=== PATIENT | female | born 2000 | race Caucasian/White ===

== ENCOUNTER 2023-03-28 08:53 | Outpatient (AMB) | payer OTHER, SELFPAY ==
--- NOTE | 2023-03-28 08:58 | A.OFFVIS_ITS ---
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 Patient reports while she was skiing she landed with her leg twisting in different directions and heard a loud pop. She was unable to bear weight and presented to [facility] where xrays were performed. Currently she has ongoing pain and is unable to bear full weight. Limited ROM. Finds little to no relief with ibuprofen and Tylenol. She has been out of work since injury. 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 today for evaluation of right knee injury s/p skiing when she landed with her leg twisting in different directions and heard a loud ?pop?, 03/13/23. She reports she was unable to bear weight on her leg and was seen at [facility] where x-rays were performed. She currently states she has ongoing pain and limited ROM in her knee and is unable to bear full weight on her leg. She also c/o knee giving out with ambulation and cannot fully bend her knee. She finds minimal relief with ibuprofen and Tylenol. She has been using a brace with benefits. 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 Review of Systems Const All systems reviewed & are unremarkable except as noted in HPI and below Physical Exam Vital Signs: BMI result Body Mass Index 37.1 Const General: cooperative, healthy appearing, comfortable, no acute distress, well developed and alert Orientation/consciousness: patient oriented x3 HEENT Head: Yes normal to inspection, Yes normocephalic and Yes atraumatic Eyes General: appearance normal, both eyes and all related structures Resp Effort & Inspection: normal respiratory effort and able to speak in complete sentences Cardio Rate: regular rate Peripheral pulses: Peripheral pulses 2+ throughout GI Palpation (GI): Soft to palpation Skin Lesions: no lesions Rashes: no rashes Neuro General: patient oriented x3 Extrem Other: Right knee: Skin intact, no erythema . Trace effusion. Tenderness along the medial joint line. ROM is limited -5-80deg. Negative Cara?s. Significant guarding with ligamentous laxity. NVI. Results Reviewed Results Reviewed: Xrays were obtained in the office today and personally reviewed by me of the right knee negative for acute fracture or dislocations. Assessment & Plan Assessment & Plan (1) Internal derangement of right knee: Code(s): M23.91 - Unspecified internal derangement of right knee Plan Given her limitation in ROM and nature of her injury, an MRI of the right knee has been ordered to further evaluate the ligamentous structures. She was fit for a knee brace in the office today to use for stability. She will see us back once the scan is complete and remain out of work till her follow-up appointment pending MRI. Orders: Orders XR knee standing BI Today M25.561 - Pain in right knee, M25.562 - Pain in left knee XR knee RT 2V Today M25.569 - Pain in unspecified knee MR knee RT wo con Today M23.91 - Unspecified internal derangement of right knee Patient Instructions: Scribed for Jenny Jones PA-C, by Fredi Reaves medical editor, on 03/28/2023 at 9:00 AM EST. I, Jenny Jones PA-C, have personally reviewed and agree with the information entered by the scribe. Coding Level of Care Code New Pt Level 3 (26139) Diagnoses Internal derangement of right knee M23.91
[2023-03-28 09:06] VITALS: BMI 37.1
== END 2023-03-28 09:45 | disposition home or self-care (01) ==
PROVIDERS: PCP Pediatrics; Visit Provider Physician Assistant
DX: M23.91 Unspecified internal derangement of right knee (principal)
CPT/HCPCS: 99203

== ENCOUNTER 2023-03-28 16:05 | Outpatient (REF) | payer OTHER, SELFPAY ==
--- NOTE | ~2023-03-28 | XR_ITS ---
EXAMINATION: XR KNEE, RIGHT XR KNEE STANDING AP, BILATERAL CLINICAL INFORMATION: Pain in right knee, pain in unspecified knee. COMPARISON: None available. TECHNIQUE: AP standing view of bilateral knees. Lateral and sunrise views of the right knee. FINDINGS: AP STANDING VIEW LEFT KNEE: Minimal medial joint space narrowing with minimal medial marginal tibial hypertrophic change. RIGHT KNEE: Minimal medial joint space narrowing with minimal medial marginal tibial hypertrophic change. 7 mm sclerotic lesion overlying the proximal lateral tibia may represent a bone island. No significant joint effusion. XR/XR knee standing BI IMPRESSION: Minimal degenerative changes in the bilateral knees.
--- NOTE | ~2023-03-28 | XR_ITS ---
EXAMINATION: XR KNEE, RIGHT XR KNEE STANDING AP, BILATERAL CLINICAL INFORMATION: Pain in right knee, pain in unspecified knee. COMPARISON: None available. TECHNIQUE: AP standing view of bilateral knees. Lateral and sunrise views of the right knee. FINDINGS: AP STANDING VIEW LEFT KNEE: Minimal medial joint space narrowing with minimal medial marginal tibial hypertrophic change. RIGHT KNEE: Minimal medial joint space narrowing with minimal medial marginal tibial hypertrophic change. 7 mm sclerotic lesion overlying the proximal lateral tibia may represent a bone island. No significant joint effusion. XR/XR knee RT 2V IMPRESSION: Minimal degenerative changes in the bilateral knees.
== END 2023-03-28 16:06 | disposition home or self-care (01) ==
LOC: HO.HOSX 16:05
PROVIDERS: Visit Provider Physician Assistant
DX: M23.91 Unspecified internal derangement of right knee (principal); M25.561 Pain in right knee; M25.562 Pain in left knee
CPT/HCPCS: 73560; 73565; 99202

== ENCOUNTER 2023-04-24 20:14 | Outpatient (REF) | payer OTHER, SELFPAY ==
--- NOTE | ~2023-04-24 | MR_ITS ---
EXAMINATION: MR KNEE WITHOUT CONTRAST, RIGHT CLINICAL INFORMATION: Unspecified internal derangement of the right knee. Injury skiing 03/14/2023. Medial pain. Decreased range of motion. COMPARISON: Radiograph dated 03/28/2023. TECHNIQUE: MRI of the knee without contrast was performed using routine sequences on a high-field scanner. FINDINGS: MENISCI: Medial Meniscus: Intact. Lateral Meniscus: Intact. LIGAMENTS: Cruciate: There is a near-complete tear of the ACL at the mid substance with laxity of a thin band of residual intact fibers. Surrounding soft tissues are edematous. PCL is normal. Collateral: Intact EXTENSOR MECHANISM: Intact ARTICULAR CARTILAGE/BONE: Patellofemoral Compartment: Minimal chondral surface irregularity at the central trochlea. Patellar cartilage is normal. Medial Compartment: There is an osseous contusion at the posterior margin of the medial tibial plateau. A more mild contusion is present at the medial margin of the medial femoral condyle. Lateral Compartment: Osseous contusions are present at the posterior and lateral margins of the lateral tibial plateau. Articular cartilage appears normal. No fracture or malalignment. JOINT FLUID AND BURSAE: Small joint effusion. No Rios's cyst. MR/MR knee RT wo con IMPRESSION: 1. Near-complete ACL tear. 2. Osseous contusions at the medial and lateral tibial plateau and medial femoral condyle. 3. Small joint effusion. 4. Intact menisci.
== END 2023-04-24 20:15 | disposition home or self-care (01) ==
LOC: HO.MRI 20:14
PROVIDERS: Visit Provider Physician Assistant
DX: M23.91 Unspecified internal derangement of right knee (principal)
CPT/HCPCS: 73721

== ENCOUNTER 2023-05-08 14:39 | Outpatient (AMB) | payer OTHER, SELFPAY ==
--- NOTE | 2023-05-08 14:43 | A.OFFVIS_ITS ---
Intake Vital Signs 05/08/23 14:44 Height 5 ft 6 in Weight 230 lb BMI 37.1 Intake Visit Reasons: OV- RT Knee MRI review Intake Note: Dafne a 22 year old female presents today for an MRI review of the right knee. DOI 03/13/23. Patient reports while she was skiing she landed with her leg twisting in different directions and heard a loud pop. Patient reports that the knee is feeling the same since her injury. Accompanied by: Mother Allergies metformin Allergy (Verified 05/08/23 14:45) Rash Sulfacet-R Allergy (Unknown, Uncoded 05/08/23 14:45) Rash HPI OV- RT Knee MRI review HPI Details Dafne a 22 year old female presents today for an MRI review of the right knee. DOI 03/13/23. Patient reports while she was skiing she landed with her leg twisting in different directions and heard a loud pop. 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 She is active and healthy. She has been wearing a knee brace and has lateral sided knee pain. 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 Resp Other: No audible wheezing Effort & Inspection: normal respiratory effort Back/Spine/Pelvis Cervical Spine: normal cervical lordosis Skin General skin exam: no rashes or lesions noted Neuro General: no focal motor deficits Extrem Other: lateral compartment ttp mild effusion 5-130 deg motion 1+valgus instability with minimal ttp 1+ don Psych Appearance: grossly normal and well kempt Mental Status: mental status grossly normal Speech and movement: Normal speech and movement present Affect: normal affect Attitude: cooperative Results Reviewed Results Reviewed: I personally reviewed the MR images. 1. Near-complete ACL tear. 2. Osseous contusions at the medial and lateral tibial plateau and medial femoral condyle. 3. Small joint effusion. 4. Intact menisci. Assessment & Plan Assessment & Plan (1) ACL (anterior cruciate ligament) rupture: Code(s): S83.519A - Sprain of anterior cruciate ligament of unspecified knee, initial encounter Plan: This is a 22 yo F with right ACL rupture. I recommend right ACL reconstruction. I discussed the risks benefits and alternatives including but not limited to the risk of pain, infection, stiffness, need for further surgery as well as potential medical complications. We discussed allograft vs autgraft and I recommend quad tendon autograft. I discussed this with her and she agreeS. I also recommend PT prior to surgery to obtain full motion and engage the quadriceps. Orders: Orders PT Evaluation and Treatment Today S83.519A - Sprain of anterior cruciate ligament of unspecified knee, initial encounter Coding Level of Care Code Est Pt Level 4 (03055) Diagnoses ACL (anterior cruciate ligament) rupture S83.519A
[2023-05-08 14:44] VITALS: BMI 37.1
== END 2023-05-08 15:40 | disposition home or self-care (01) ==
PROVIDERS: Visit Provider Orthopaedic Surgery
DX: S83.519A Sprain of anterior cruciate ligament of unspecified knee, initial encounter (principal)
CPT/HCPCS: 99214

== ENCOUNTER → 2023-05-08 14:39 | Outpatient (BNVA) | payer OTHER, SELFPAY | PROVIDERS: Visit Provider Orthopaedic Surgery | DX: S83.511A Sprain of anterior cruciate ligament of right knee, initial encounter (principal) | CPT/HCPCS: 99212 ==

== ENCOUNTER 2023-05-30 14:00 | Outpatient (RCR) | payer OTHER, SELFPAY ==
--- NOTE | 2023-05-16 17:30 | MHC.PT.EP ---
[facility] [place] Office [place] Office [place] Office [address] Carrie Becerra [address] [phone] F: [phone] F: [phone] F: [phone] F: [phone] Physical Therapy Plan of Care Date of Evaluation: 05/16/23 Date of Surgery: 06/03/23 Diagnosis: R ACL TEAR Assessment: Pt IS 22 YO F S/P SKIING INJURY ON 03/13/23 WITH RESULTANT ACL TEAR R KNEE. HAS SEEN ORTHO AND REFERRED FOR PRE-OP PT TO WORK ON ROM AND QUAD STRENGTHENING. SCHEDULED FOR REPAIR ON 04/04/23 REPORTS HAS NOT BEEN HAVING MUCH SWELLING. HAS KNEE BRACE (VELCRO) AND HAS BEEN FITTED FOR PO BRACE (WITH DIALS) PRESENTS WITH DECREASED R LE STRENGTH AND LIMITED R KNEE ROM WITH PAIN. SHOULD BENEFIT FROM PT FOR PRE-OP TRNG 1X/WK X 2 WKS Frequency and Duration: The patient will be seen 1X/WK X 2 WKS Short Term Goals: 1. INCREASED AWARENESS R ACL RECONSTRUCTION SURGERY POST OP PT CARE 2. I HEP FOR PRE-OP ACL EXERCISES 3. INCREASED UNDERSTANDING TRANSF TRNG AND STAIR NEGOTIATION 4. Pt ABLE TO ABNER/DOFF POST OP BRACE INDEPENDENTLY 5. Pt ABLE TO TRANSFER AND AMBULATE AND NEGOTIATE 4 STAIRS WITH RAIL/CRUTCH Team Leader Goals: Treatment Plan: Modalities to reduce pain, spasms and effusion. Manual therapy to restore motion and function. Therapeutic exercise to improve strength and flexibility. Neuromuscular re-education for posture and balance. Therapeutic activities to return to functional activities of daily living. Electronically signed by: CLAUDIO ESPANA PT Please sign and return to therapist. Thank you for your referral.
--- NOTE | 2023-06-02 08:10 | MHC.PT.DC ---
[facility] [place] Office [place] Office [place] Office [address] Carrie Becerra [address] [phone] F: [phone] F: [phone] F: [phone] F: [phone] Physical Therapy Discharge Report Diagnosis: R ACL TEAR Date of Surgery: 06/03/23 Date of Evaluation: 05/16/23 Date of Discharge: 06/02/23 Treatments to Date: 3 Cancellations to Date: No Shows to Date: Discharge Status: Achieved Goals Independent with HEP Discharge Summary: PER ASSESSMENT AT LAST SESSION Brace fitted for Dafne today and able to amb w/comfort around gym. Pt given added ex's for pre rehab w/o any issues and scheduled for surgery next week. ROM R KNEE ~0-125 Electronically signed by: CLAUDIO ESPANA PT Please sign and return to therapist. Thank you for your referral.
== END 2023-06-02 08:11 | disposition home or self-care (01) ==
LOC: HO.PT 14:00
PROVIDERS: PCP Pediatrics; Visit Provider Orthopaedic Surgery
DX: S83.511A Sprain of anterior cruciate ligament of right knee, initial encounter (principal)
CPT/HCPCS: 97110; 97116; 97161; 97535

== ENCOUNTER 2023-06-03 05:59 | Day surgery (SDC) | payer OTHER, SELFPAY ==
[2023-05-30 08:56] VITALS: BMI 37.1
[2023-05-30 09:11] VITALS: BMI 37.1
--- NOTE | 2023-06-02 11:42 | HO.ANESPROP2 ---
Documented by User: Savita Osuna NP 06/02/23 11:42 HPI - Anesthesia Eval Consult details Narrative: 22yo F for Right ACL Autograft quad vs BTB Allograft PMFSH Active Problems Active Problems: All Active Problems ACL (anterior cruciate ligament) rupture (Acute) Internal derangement of right knee (Acute) Past Medical History Medical History PCOS (polycystic ovarian syndrome) Surgical History Surgical History History of surgery on lower extremity Hx of wisdom tooth extraction Social History Social History Are you a primary special needs caregiver to a significant other at home: No Do you presently have visiting nurse or other home services: No Comment: knee right Patient Tobacco Use Status: Never used Tobacco Current occupational status: employed 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 Allergy/AdvReac Type Severity Reaction Status Date / Time metformin Allergy Intermediate Rash Verified 06/03/23 06:09 sulfacetamide Allergy Intermediate Rash Verified 06/03/23 06:09 [From Sulfacet-R] sulfur [From Sulfacet-R] Allergy Intermediate Rash Verified 06/03/23 06:09 Exam Height,Weight and Vital Signs: Height 5 ft 6 in Weight 104.326 kg Assessment and Plan Assessment Anesthesia Assessment: Chart Reviewed Documented by User: Zander Rosas MD 06/03/23 14:38 PMFSH Past Medical History Medical History PCOS (polycystic ovarian syndrome) Family History Family history of problems with anesthesia: No Surgical History Surgical History History of surgery on lower extremity Hx of wisdom tooth extraction History of Problems with Anesthesia: No Social History Social History Are you a primary special needs caregiver to a significant other at home: No Do you presently have visiting nurse or other home services: No Comment: knee right Patient Tobacco Use Status: Never used Tobacco Current occupational status: employed 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 Allergy/AdvReac Type Severity Reaction Status Date / Time metformin Allergy Intermediate Rash Verified 06/03/23 06:09 sulfacetamide Allergy Intermediate Rash Verified 06/03/23 06:09 [From Sulfacet-R] sulfur [From Sulfacet-R] Allergy Intermediate Rash Verified 06/03/23 06:09 Exam Airway Mallampati Class: II TM Dist: >3cm Neck ROM: Full Loose/Missing/Broken Teeth: No Assessment and Plan Assessment Anesthesia Assessment: Anesthesia Plan Discussed Final Anesthetic Review Family History of Problems with Anesthesia: No History of Problems with Anesthesia: No NPO: Yes ASA Class: II Final Preanesthetic Review: No Changes in Pt Med Stat, Meds/Allgs Chart Reviewed, Consent Obtained/Reviewed and Anes Risks/Benef Reviewed Patient Risk: Intermediate Procedure Risk: Low Anesthetic Plan Anesthetic Plan: GA and Regional Block Disposition: Standard PACU
[2023-06-03] VITALS (17 sets, daily range): BP systolic 125–151; BP diastolic 73–92; PULSE 63–108; RESP 14–20; TEMP 36.4–37.2; O2SAT 93–100; BMI 43.6
[2023-06-03 06:20] LABS: UPreg QC Valid YES; Urine Pregnancy NEGATIVE (NEGATIVE)
[2023-06-03] MEDS: Lactated Ringers 1,000 ML 100 ML IVCONT (06:49)
--- NOTE | 2023-06-03 07:27 | MHC.SHP ---
Pre-Procedural Eval Section A - 24 Hr Update-Section A only Date of Service: 06/03/23 The patient is an INPATIENT: No Changes since office visit: No Cold of Flu in the past 2 weeks, No New Medical Problems, No Changes in Medication and No Patient answered all questions The patient has been examined within 24 hours of the surgical procedure. The History & Physical has been completed within 30 days and I have reviewed it.: Yes Section B - Complete if H&P > 30 days Chief Complaint: Sprain of anterior cruciate ligament of right knee Allergies: Allergies Allergy/AdvReac Type Severity Reaction Status Date / Time metformin Allergy Intermediate Rash Verified 06/03/23 06:09 sulfacetamide Allergy Intermediate Rash Verified 06/03/23 06:09 [From Sulfacet-R] sulfur [From Sulfacet-R] Allergy Intermediate Rash Verified 06/03/23 06:09 Plan I have reviewed the history and physical and performed a pertinent physical examination on my patient. No changes have occurred unless specified. Time Spent With Patient Time: Total time managing care of this patient today ____ minutes.
--- NOTE | 2023-06-03 10:21 | PM.OP ---
Brief Operative Note Date of Service: 06/03/23 Pre-op diagnosis: Right ACL tear Post-op diagnosis: same Procedure: Right ACL recon with BTB sutograft Implants: Mata and nephew suture button, foot print and 10x25 tibial interference screw Surgeon: Artur De Leon MD Anesthesia: GETA and regional Was an Well Logging Captain Mud Analysis used for this Procedure?: Yes Well Logging Captain Mud Analysis: Althea Ji Estimated blood loss (mL): 20 Tourniquet time (min): 120 IV fluids (mL): 1,200 Pathology: none sent Condition: stable Disposition: PACU
[2023-06-03] MEDS: Ketorolac Tromethamine 30 MG/ML VIAL IVPUSH (11:03)
[2023-06-03] MEDS: HYDROmorphone HCl 0.5 MG/0.5 ML SYRINGE 0.25 MG IVPUSH ×3 (11:06→11:19)
[2023-06-03] MEDS: LORazepam 2 MG/ML VIAL 1 MG IVPUSH (11:43)
[2023-06-03] MEDS: oxyCODONE HCl Immed Release 5 MG TABLET PO (12:18)
--- NOTE | 2023-06-09 08:24 | P.OP_ITS ---
Operative Note Operative Note Date of Service: 06/03/23 Narrative: Date of Service: 06/03/23 Pre-op diagnosis: Right ACL tear Post-op diagnosis: same Procedure: Right ACL recon with BTB autograft Implants: Mata and nephew suture button, foot print and 10x25 tibial interference screw Surgeon: Artur De Leon MD Anesthesia: GETA and regional Was an Tube Mill Operator used for this Procedure?: Yes Tube Mill Operator: Althea Ji Estimated blood loss (mL): 20 Tourniquet time (min): 120 IV fluids (mL): 1,200 Pathology: none sent Condition: stable Disposition: PACU Procedure in detail: Patient was brought to the operating room placed supine on the arthroscopic table and prepped and draped in standard sterile fashion. A time-out was called to identify proper site proper procedure proper surgeon and IV antibiotics per weight were administered. Under anesthesia she had a + pivot shift. I begna by making an incision from the middle of the patella distally to the beginning of the tibial tubercle. Dissection down to the paratenon was taken and an 11 mm tendon was outline with cautery taken from the middle third of the patellar tenon. After the paratenone was incised, protected and retracted an 11 blade was used to make full thickness incision of the tendon. The patellar bone bludg was then outline with cautery and measured 11 x 20. A small oscillating saw was used to make triangular cuts and a small osteotome was usd to complete the cut. The proximal bone plug was tne dessected off the underlying fat pad and the proximal portion of the allograft was protects. I then turned to the tibial tubercle where I also made an 11x 20 triangular cut initially with an oscillating saw and then with an ostetome. The fragment was dissected off the fat pad and the graft was prepared on the back table to fit through a 10mm graft sizer. The allograft incision was then closed with 0 vicryl for the paratenon and patellar tendon , then 2.0 sub Q and yung on the skin. I then turned to the arthroscopic portion. I began by exsanguinating the limb and insufflating tourniquet to 300 mm Hg. Then made a standard anterolateral stab incision. The knee was insufflated with water and 30 degree arthroscope was placed. There was grade 1 fibrillations of the patella but overall suprapatellar pouch and the gutters were clean. I descended into the medial compartment where I made my far medial portal under direct visualization. There was an intacdt medial and lateral meniscus. The roots were intact. I then examined the notch where there was a + empty wall sign and an intact PCL. I debrided the stump and acl footprint and performed a limited notchplasty. I then, through a far AM portal and a 7mm behind the back guide, drilled a k-wire through the LFC with the knee in hyper-flexion. I measured the tunnel as a 33 and then after sizing the allograft on the back table drilled a 25 mm tunnel with an 10 mm reamer. The final 8 mm was drilled with a 4.5 reamer. I then pulled a suture through the femoral tunnel and turned my attention to the tibia. I did examine the femoral tunnel and was satisfied with the posterior wall and its location low and medial at the anatomic footprint. I placed my tibial drill guide in 55 deg and, through a anteromedial inc just lateral to the tibial tubercle placed a k-wire into the notch exiting just medial to the anterior horn insertion of the lateral meniscus. I then over-reamed with an 10 reamer. I cleaned the tunnels up with a shaver. I then passed the autograft through the tibial tunnel and femoral tunnel and flipped the button. The graft was examined and I was satisfied with the poiosition. I placed a tibial interference screw with the knee in hyper-extension while holding the graft taught. Once I was satisfied that the interference screw was buried I examined the ACL. The ACL was not impinging and there was a negative pivot shift. I then removed all instrumentation and closed the incisions with nylon. Patient was then placed in sterile dressings and a hinged knee brace. She was then extubated brought recovery room stable condition. There were no known complications.
== END 2023-06-03 13:42 | disposition home or self-care (01) ==
PROVIDERS: Nurse Practitioner; PCP Pediatrics; Visit Provider Orthopaedic Surgery
PROC: (CPT 27428; principal; 2023-06-03 07:30)
DX: S83.511A Sprain of anterior cruciate ligament of right knee, initial encounter (principal); X50.1XXA Overexertion from prolonged static or awkward postures, initial encounter; Y93.23 Activity, snow (alpine) (downhill) skiing, snowboarding, sledding, tobogganing and snow tubing; Y92.9 Unspecified place or not applicable; Y99.8 Other external cause status; Z88.8 Allergy status to other drugs, medicaments and biological substances; Z88.2 Allergy status to sulfonamides
CPT/HCPCS: 29888; 81025; C1713; J0131; J0171; J0665; J0690; J1100; J1170; J1885; J2060; J2250; J2405; J2704

== ENCOUNTER → 2023-06-03 05:59 | Outpatient (BNV) | payer OTHER, SELFPAY | PROVIDERS: PCP Pediatrics; Visit Provider Orthopaedic Surgery | DX: S83.511A Sprain of anterior cruciate ligament of right knee, initial encounter (principal) | CPT/HCPCS: 29888 ==

== ENCOUNTER 2023-06-12 09:49 | Outpatient (REF) | payer OTHER, SELFPAY ==
--- NOTE | ~2023-06-12 | XR_ITS ---
EXAMINATION: XR KNEE, RIGHT CLINICAL INFORMATION: Pain and specifically. COMPARISON: MR right knee 04/24/2023. X-ray right knee 03/28/2023. TECHNIQUE: Single AP view of the right knee. FINDINGS: Single AP view demonstrates metallic button along the distal lateral femur with appearance of tunneling characteristic of ACL repair in patient with recent MRI diagnostic of near-complete ACL tear. Diffuse soft tissue swelling with small scattered lucencies in the subcutaneous tissue likely representing postoperative air. Minimal medial joint compartment narrowing again seen. Stable 7 mm sclerotic lesion overlying the proximal lateral tibia may represent a bone island. XR/XR knee RT 1V IMPRESSION: Status post ACL repair. Diffuse soft tissue swelling with small scattered lucencies in the subcutaneous tissue likely representing postoperative air. Correlation with clinical exam recommended for confirmation.
== END 2023-06-12 09:50 | disposition home or self-care (01) ==
LOC: HO.HOSX 09:49
PROVIDERS: Visit Provider Physician Assistant
DX: M25.561 Pain in right knee (principal); Z98.890 Other specified postprocedural states
CPT/HCPCS: 73560; 99212

== ENCOUNTER 2023-06-12 14:05 | Outpatient (AMB) | payer OTHER, SELFPAY ==
--- NOTE | 2023-06-12 14:13 | MHC.OFFVIS ---
Intake Visit Reasons: PO RT ACL 06/03/23 NE Intake Note: Dafne is a 22 year old female who presents today for a post op appointment s/p right ACL 06/03/23 NE. Patient reports that she is doing well. Her pain is at a 2/10 on the pain scale. Allergies metformin Allergy (Intermediate, Verified 06/12/23 14:16) Rash sulfacetamide [From Sulfacet-R] Allergy (Intermediate, Verified 06/12/23 14:16) Rash sulfur [From Sulfacet-R] Allergy (Intermediate, Verified 06/12/23 14:16) Rash HPI HPI PO RT ACL 06/03/23 NE: Details: 22-year-old female who presents in the office today 9 days status post right ACL reconstruction with BTB autograft, which was performed on 06/03/[address] De Leon. While in the office today the patient reports she is doing well and rates her pain as a 2/10. 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 Sutures intact. No surrounding erythema or drainage. No signs of infection. NVI. Assessment & Plan Assessment & Plan (1) History of repair of anterior cruciate ligament of right knee: Onset Date: ~06/03/23 Comment: ACL reconstruction with BTB autograft Dr. Artur De Leon Code(s): Z98.890 - Other specified postprocedural states Category: Surgical Plan Ms. Thornton is a 22-year-old female who presents in the office today 9 days status post right ACL reconstruction with BTB autograft, which was performed on 06/03/[address] De Leon. While in the office today the patient reports she is doing well and rates her pain as a 2/10. Sutures were removed and steri-stripes were applied. She will continue to work with physical therapy. Follow up will be in 4 weeks, or sooner if needed. X-rays of the right knee which were obtained while in the office today and were reviewed by me, Althea Ji PA-C, revealed intact endo-button in proper position. Orders: Orders XR knee RT 1V Today M25.569 - Pain in unspecified knee Patient Instructions: Scribed by Sonam Almaguer ophthalmic medical assistant, for Althea Ji PA-C on 06/12/2023 at 2:09 pm, EST. Coding Level of Care Code Global (45361) Diagnoses History of repair of anterior cruciate ligament of right knee Z98.890
== END 2023-06-12 14:52 | disposition home or self-care (01) ==
PROVIDERS: Visit Provider Physician Assistant
DX: Z98.890 Other specified postprocedural states (principal)
CPT/HCPCS: 99024

== ENCOUNTER 2023-07-04 14:58 | Outpatient (AMB) | payer OTHER, SELFPAY ==
--- NOTE | 2023-07-07 20:17 | A.OFFVIS_ITS ---
Intake Visit Reasons: PO RT ACL 06/03/23 NE-sutures check Allergies metformin Allergy (Intermediate, Verified 06/12/23 14:16) Rash sulfacetamide [From Sulfacet-R] Allergy (Intermediate, Verified 06/12/23 14:16) Rash sulfur [From Sulfacet-R] Allergy (Intermediate, Verified 06/12/23 14:16) Rash HPI HPI PO RT ACL 06/03/23 NE-sutures check: Details: 22 yo female presents to the office today s/p rt knee acl recon 06/03/23 with retained sutures. Denies fever, chills or drainage. 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 Assessment & Plan Assessment & Plan (1) History of repair of anterior cruciate ligament of right knee: Onset Date: ~06/03/23 Comment: ACL reconstruction with BTB autograft Dr. Artur De Leon Code(s): Z98.890 - Other specified postprocedural states Category: Surgical (2) Retained suture: Code(s): T81.89XA - Other complications of procedures, not elsewhere classified, initial encounter; Z18.9 - Retained foreign body fragments, unspecified material Category: Medical Plan Retained suture removed in office today without complications. Coding Level of Care Code Global (08833) Diagnoses History of repair of anterior cruciate ligament of right knee Z98.890 Retained suture T81.89XA; Z18.9
== END 2023-07-04 15:00 | disposition home or self-care (01) ==
PROVIDERS: PCP Pediatrics; Visit Provider Physician Assistant
DX: Z98.890 Other specified postprocedural states (principal); T81.89XA Other complications of procedures, not elsewhere classified, initial encounter; Z18.9 Retained foreign body fragments, unspecified material
CPT/HCPCS: 99024

== ENCOUNTER → 2023-07-04 14:58 | Outpatient (BNVA) | payer OTHER, SELFPAY | PROVIDERS: PCP Pediatrics; Visit Provider Physician Assistant | DX: T81.89XD Other complications of procedures, not elsewhere classified, subsequent encounter (principal); Z18.9 Retained foreign body fragments, unspecified material; Z98.890 Other specified postprocedural states | CPT/HCPCS: 99212 ==

== ENCOUNTER 2023-07-14 14:31 | Outpatient (AMB) | payer OTHER, SELFPAY ==
--- NOTE | 2023-07-14 14:31 | A.OFFVIS_ITS ---
Intake Visit Reasons: PO RT ACL 06/03/23 NE Intake Note: Dafne is a 22 year old female who presents today for a post op appointment s/p right ACL 06/03/23 NE. Patient reports that she is doing[ well she is having some painful clicking with extension and is questioning if there was any injury in the meniscus. She is working on full extension and flexion of the knee, she is fully weight bearing with the brace. Allergies metformin Allergy (Intermediate, Verified 06/12/23 14:16) Rash sulfacetamide [From Sulfacet-R] Allergy (Intermediate, Verified 06/12/23 14:16) Rash sulfur [From Sulfacet-R] Allergy (Intermediate, Verified 06/12/23 14:16) Rash HPI HPI PO RT ACL 06/03/23 NE: Details: 6 weeks post op Wearing brace when out of house no gait antalgia occasional anterior knee pain PFSH Medical History (Updated 07/07/23 @ 20:19 by Jenny Jones PA-C) PCOS (polycystic ovarian syndrome) Social History Are you a primary foster care social worker to a significant other at home: No Do you presently have visiting nurse or other home services: No Comment: knee right Patient Tobacco Use Status: Never used Tobacco 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 Artur De Leon Code(s): Z98.890 - Other specified postprocedural states Category: Surgical Plan: Continue PT Care with ambulation and brace when out of house f/u 6 weeks Coding Level of Care Code Global (33572) Diagnoses History of repair of anterior cruciate ligament of right knee Z98.890
== END 2023-07-14 14:51 | disposition home or self-care (01) ==
PROVIDERS: PCP Pediatrics; Visit Provider Orthopaedic Surgery
DX: Z98.890 Other specified postprocedural states (principal)
CPT/HCPCS: 99024

== ENCOUNTER → 2023-07-14 14:31 | Outpatient (BNVA) | payer OTHER, SELFPAY | PROVIDERS: PCP Pediatrics; Visit Provider Orthopaedic Surgery | DX: Z47.89 Encounter for other orthopedic aftercare (principal); Z98.890 Other specified postprocedural states | CPT/HCPCS: 99212 ==

== ENCOUNTER 2023-09-01 13:15 | Outpatient (AMB) | payer OTHER, SELFPAY ==
--- NOTE | 2023-09-01 13:19 | MHC.OFFVIS ---
Intake Visit Reasons: OV-RT ACL follow up 06/03/23 Intake Note: Dafne is a 22 year old female who presents today for a follow up of her right knee s/p ACL Repair 06/03/23. Patient reports that she is doing well with no concerns. She continues to work with PT Allergies metformin Allergy (Intermediate, Verified 09/01/23 13:22) Rash sulfacetamide [From Sulfacet-R] Allergy (Intermediate, Verified 09/01/23 13:22) Rash sulfur [From Sulfacet-R] Allergy (Intermediate, Verified 09/01/23 13:22) Rash HPI HPI OV-RT ACL follow up 06/03/23: Details: Dafne is a 22 year old female who presents today for a follow up of her right knee s/p ACL Repair 06/03/23. Patient reports that she is doing well with no concerns. She continues to work with PT. 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 Artur De Leon Code(s): Z98.890 - Other specified postprocedural states Category: Surgical Plan: Doing well. HEP. No work. F/u 3 mo. Coding Level of Care Code Global (57090) Diagnoses History of repair of anterior cruciate ligament of right knee Z98.890
== END 2023-09-01 13:41 | disposition home or self-care (01) ==
PROVIDERS: PCP Pediatrics; Visit Provider Orthopaedic Surgery
DX: Z98.890 Other specified postprocedural states (principal)
CPT/HCPCS: 99024

== ENCOUNTER → 2023-09-01 13:15 | Outpatient (BNVA) | payer OTHER, SELFPAY | PROVIDERS: PCP Pediatrics; Visit Provider Orthopaedic Surgery | DX: Z47.89 Encounter for other orthopedic aftercare (principal); Z98.890 Other specified postprocedural states | CPT/HCPCS: 99212 ==

== ENCOUNTER 2023-10-07 14:00 | Outpatient (RCR) | payer OTHER, SELFPAY ==
--- NOTE | 2023-06-11 08:19 | MHC.PT.EP ---
[facility] [place] Office [place] Office [place] Office [address] [phone] F: [phone] F: [phone] F: [phone] F: [phone] Physical Therapy Plan of Care Date of Evaluation: 06/10/23 Date of Surgery: 06/03/23 Diagnosis: POST OP ACL Assessment: Pt IS 22 YO F S/P R ACL RECONSTRUCTION WITH PATELLAR TENDON AUTOGRAFT. Pt CAME FOR PRE-OP PT. PRESENTS TODAY WITH LIMITED R KNEE ROM AND LIMITED R LE STRENGTH. 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 SHOULD BENEFIT FROM PT TO HELP IMPROVE OVERALL FUNCTIONAL MOBILITY Frequency and Duration: The patient will be seen 2X/WK X 8 WKS Short Term Goals: 1. INCREASED AWARENESS KNEE CARE 2. I HEP WITH DC EX PLAN 3. Pt ABLE TO PERF 10 SLR WITHOUT QUAD LAG 4. Pt TO REPORT NOTABLE DECREASE IN R KNEE SWELLING Route Contractor Goals: 1. R KNEE ROM 0-130 2. R LE STRENGTH 5/5 T/O 3. DECREASED R KNEE PAIN AT LEAST 50% WITH ADLS 4. GT WITH GOOD PATTERN WITHOUT AD Treatment Plan: Modalities to reduce pain, spasms and effusion. Manual therapy to restore motion and function. Therapeutic exercise to improve strength and flexibility. Neuromuscular re-education for posture and balance. Therapeutic activities to return to functional activities of daily living. Electronically signed by: CLAUDIO ESPANA PT Please sign and return to therapist. Thank you for your referral.
--- NOTE | 2023-11-25 12:05 | MHC.PT.DC ---
[facility] [place] Office [place] Office [place] Office [address] Carrie Becerra 140 [facility] [phone] F: [phone] F: [phone] F: [phone] F: [phone] Physical Therapy Discharge Report Diagnosis: POST OP ACL Date of Surgery: 06/03/23 Date of Evaluation: 06/10/23 Date of Discharge: 10/07/23 Treatments to Date: 19 Cancellations to Date: No Shows to Date: Discharge Status: Achieved Goals Improved Function Independent with HEP Discharge Summary: HAS MET MOST PT GOALS. TO RETURN AT 6-9 MONTH POINT (ORTHO FU AT 6 MONTHS) FOR HIGHER LEVEL/RTW ACTIVITIES Electronically signed by: CLAUDIO ESPANA PT Please sign and return to therapist. Thank you for your referral.
== END 2023-11-25 12:05 | disposition home or self-care (01) ==
LOC: HO.PT 14:00
PROVIDERS: PCP Pediatrics; Visit Provider Physician Assistant
DX: S83.511D Sprain of anterior cruciate ligament of right knee, subsequent encounter (principal)
CPT/HCPCS: 97110; 97112; 97116; 97140; 97161; 97530; 97535

== ENCOUNTER 2023-12-04 12:10 | Outpatient (AMB) | payer OTHER, SELFPAY ==
--- NOTE | 2023-12-04 12:12 | MHC.OFFVIS ---
Vital Signs 12/04/23 12:15 Height 5 ft 6 in Weight 260 lb BMI 42.0 Intake Visit Reasons: OV-RT ACL follow up 06/03/23 Intake Note: Dafne is a 22 year old female who presents today for a follow up of her right knee s/p ACL Repair 06/03/23. 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 She still struggles with full extension. She is no longer working with physical therapy. She does not take anything for her pain. Allergies metformin Allergy (Intermediate, Verified 09/01/23 13:22) Rash sulfacetamide [From Sulfacet-R] Allergy (Intermediate, Verified 09/01/23 13:22) Rash sulfur [From Sulfacet-R] Allergy (Intermediate, Verified 09/01/23 13:22) Rash HPI HPI OV-RT ACL follow up 06/03/23: Details: Dafne is a 22 year old female who presents today for a follow up of her right knee s/p ACL Repair 06/03/23. 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 She still struggles with full extension. She is no longer working with physical therapy. She does not take anything for her pain. 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 Artur De Leon Code(s): Z98.890 - Other specified postprocedural states Category: Surgical Plan: Bertram continues to improve with symptoms that include anterior knee pain and some inability to hyperextend knee compared to the left but otherwise improving. I recommend dynamic PT. follow up 3 months Coding Level of Care Code Est Pt Level 3 (63990) Diagnoses History of repair of anterior cruciate ligament of right knee Z98.890
[2023-12-04 12:15] VITALS: BMI 42.0
== END 2023-12-04 12:40 | disposition home or self-care (01) ==
PROVIDERS: PCP Pediatrics; Visit Provider Orthopaedic Surgery
DX: S83.511D Sprain of anterior cruciate ligament of right knee, subsequent encounter (principal)
CPT/HCPCS: 99213

== ENCOUNTER → 2023-12-04 12:10 | Outpatient (BNVA) | payer OTHER, SELFPAY | PROVIDERS: PCP Pediatrics; Visit Provider Orthopaedic Surgery | DX: M25.561 Pain in right knee (principal); Z98.890 Other specified postprocedural states | CPT/HCPCS: 99212 ==

== ENCOUNTER 2024-01-01 13:47 | Outpatient (RCR) | payer OTHER, SELFPAY ==
--- NOTE | 2024-01-01 15:57 | MHC.PT.EP ---
[facility] [place] Office [place] Office [place] Office [address] Carrie Becerra [address] [phone] F: [phone] F: [phone] F: [phone] F: [phone] Physical Therapy Plan of Care Date of Evaluation: 01/01/24 Date of Surgery: 05/2023 Diagnosis: s/p ACL 05/2023 (RL) dynamic program Assessment: pt is a 23 y/o female presenting to physical therapy w/ referring diagnosis of . Impairments include pain, decreased range of motion, decreased strength, impaired functional mobility, impaired postural awareness, and altered ambulation mechanics. pt is a good candidate for skilled PT due to age, potential remediation of impairments, typical disease/condition progression and prognosis, comorbidities, and motivation. pt would benefit from skilled PT intervention to provide a tailored strengthening and stretching exercise program, functional training, gait training, postural re-training, neuromuscular re-education, modalities as needed for pain, equipment safety demonstration. Frequency and Duration: The patient will be seen 2x/wk for 4 wks Short Term Goals: pt will be I w/ HEP to promote self-management of condition. pt will improve R quad strength to 5/5 to promote ease in squatting/bending to pickling operator objects from the ground. Blood Donor Unit Assistant Goals: pt will report a statistically significant improvement in self-reported outcome measure, LEFI, to promote return to PLOF. pt will perform B forward lunge w/ proper form/mechanics to promote return to work readiness. Treatment Plan: Modalities to reduce pain, spasms and effusion. Manual therapy to restore motion and function. Therapeutic exercise to improve strength and flexibility. Neuromuscular re-education for posture and balance. Therapeutic activities to return to functional activities of daily living. Electronically signed by: Melany Lou PT, DPT Please sign and return to therapist. Thank you for your referral.
--- NOTE | 2024-02-16 13:04 | MHC.PT.DC ---
[facility] [place] Office [place] Office [place] Office [address] Carrie Becerra 140 [facility] [phone] F: [phone] F: [phone] F: [phone] F: [phone] Physical Therapy Discharge Report Diagnosis: s/p ACL 05/2023 (RL) dynamic program Date of Surgery: 05/2023 Date of Evaluation: 01/01/24 Date of Discharge: 02/16/24 Treatments to Date: 1 Cancellations to Date: 0 No Shows to Date: 0 Discharge Status: Discharge Summary: The patient's insurance at time of evaluation was not going to authorize any treatments until a review of assessment was completed. The insurance company was going to authorize ~6 visits; however, the patient did not book anything. Electronically signed by: Melany Lou PT, DPT Please sign and return to therapist. Thank you for your referral.
== END 2024-02-16 13:04 | disposition home or self-care (01) ==
LOC: HO.PT 13:47
PROVIDERS: PCP Pediatrics; Visit Provider Orthopaedic Surgery
DX: Z98.890 Other specified postprocedural states (principal)
CPT/HCPCS: 97161

== ENCOUNTER 2024-05-10 15:09 | Outpatient (AMB) | payer OTHER, SELFPAY ==
--- NOTE | 2024-05-10 15:12 | MHC.OFFVIS ---
Vital Signs 05/10/24 15:15 Height 5 ft 6 in Weight 260 lb BMI 42.0 Intake Visit Reasons: OV-right ACL Popping noise/clicking-limited ROM Intake Note: Dafne is a 22 year old female who presents today for a follow up of her right knee s/p ACL Repair 06/03/23. Patient reports right knee pain and stiffness. She has a popping noise/clicking. Limited ROM. States not able to fully extend her leg and upon tring she will have pain and pulling sensation. Allergies metformin Allergy (Intermediate, Verified 05/10/24 15:16) Rash sulfacetamide [From Sulfacet-R] Allergy (Intermediate, Verified 05/10/24 15:16) Rash sulfur [From Sulfacet-R] Allergy (Intermediate, Verified 05/10/24 15:16) Rash Medication List - Last Reconciled 05/17/24 by Jenny Jones PA-C No Known Home Meds HPI HPI OV-right ACL Popping noise/clicking-limited ROM: Details: 23-year-old female returns to the office today status post right knee ACL reconstruction with patellar autograft on 06/03/[address] De Leon. She states she continues to have some discomfort over the anterior portion of the knee which is worse with stairs. She denies instability. 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 She has no joint effusion or erythema. No ligamentous laxity. She does have some retropatellar tenderness and crepitus with motion. Assessment & Plan Assessment & Plan (1) History of repair of anterior cruciate ligament of right knee: Onset Date: ~06/03/23 Comment: ACL reconstruction with BTB autograft Dr. Artur De Leon Code(s): Z98.890 - Other specified postprocedural states Category: Surgical (2) Chondromalacia of right patella: Code(s): M22.41 - Chondromalacia patellae, right knee Category: Medical Plan I discussed with the patient the benefits of physical therapy to work on quad and glute strengthening exercises. Also discussed stretching exercises. I explained to the patient with the anatomy of her patella and the nature of her surgery with a patellar autograft this can predispose her to some patellofemoral symptoms. She will modify activities as needed and proceed with physical therapy. If he has any questions or concerns she will contact our office otherwise follow up as needed. Orders: Orders PT Evaluation and Treatment 05/10/24 M22.41 - Chondromalacia patellae, right knee, Z98.890 - Other specified postprocedural states Coding Level of Care Code Est Pt Level 3 (95357) Diagnoses History of repair of anterior cruciate ligament of right knee Z98.890 Chondromalacia of right patella M22.41
[2024-05-10 15:15] VITALS: BMI 42.0
--- OUTSIDE RECORDS SUMMARY | 2024-05-10 17:07 | XMS_ITS | Encounter Summary ---
Author Organization [facility] Address [address] [place], [place] [address] Phone Care Team Providers Care Police District Switchboard Operator Name Role Phone Provider, Spencer CANALES Primary Care Provider [phone] Encounter Details Date Type Department Care Team (Late st Contact Info) Description 10/30/2009 Documentation [facility] Family Medicine [address] [place] [address] Family Medicine, Physician [address] [id number] Social History Tobacco Use Types Packs/Day Years Used Date Smoking Tobacco: Never Assessed Comments Unknown Sex and Gender Information Value Date Recorded Sex Assigned at Female 03/16/2019 10:32 AM EST Legal Sex Female 5:14 PM EDT Gender Identity Female 03/16/2019 10:32 AM EST Sexual Orientation Straight 03/16/2019 10 :32 AM EST documented as of this encounter Plan of Treatment Not on file documented as of this encounter Visit Diagnoses Not on filedocumented in this encounter Care Teams Police District Switchboard Operator Relationship Specialty Start Date End Date Provider, MD Spencer [address] [place] [phone] PCP - General Pediatrics 07/11/21 10/07/22 documented as of this encounter
--- OUTSIDE RECORDS SUMMARY | 2024-05-10 17:07 | XMS_ITS | Patient Health Record ---
Author Organization [facility] Address [address] [place] [address] Care Team Providers Care Weight Loss Sales Consultant Name Role Phone DR LAURA MORALES Primary Care Provider DAVID Putnam Unavailable [phone] Allergies Allergen (clinical drug ingredient) Drug/Non Drug Allergy documented on EMR Reaction Allergy Type Onset Date Status Substance with sulfonamide structure and antibacterial mechanism of action (substance) Sulfa Antibiotics rash Drug Allergy Active Reason For Referral No Information Medications Medication SIG (Take, Route, Fr equency, Duration) Notes Start Date End Date Status Prometrium 200 MG 2 capsules at bedtim e Orally Once a day for 12 day(s) 06/20/2020 Not-Aayush ing Social History Tobacco Use: Social History Observation Description Date Details (start date - stop date) Current Smoker NA - NA Tobacco Use/Smoking Question Answer Notes Are you a current smoker How often do you smoke cigarettes? some days, bu t not every day Alcohol Screen (Audit-C) Question Answer Notes Did you have a drink containing alcohol in the p ast year? Yes Points 0 Interpretation Negative Tobacco use other than smoking: Question Answer Notes Are you an other tobacco user? No Problems Problem Type SNOMED Code ICD Code Onset Dates Problem Status W/U Status Risk Notes Problem Abnormal uterine bleeding (15925639101335 ) Abnormal uterine and vaginal bleeding, unspecified (N93.9) Active confirmed Problem Polycystic ovary syndrome (disorder) (477978048) Polycystic ovarian syndrome (E28.2) Active confirmed Plan Of Treatment Pending Test Test Name Order Date Sonohysterogram 04/11/2020 Test, Urine 06/09/2020 Insurance Providers Payer Name Payer Address Payer Phone Subscriber Number Group Number Insured Name Patient Relationship to Insured Coverage Start Date Coverage End Date [facility] [id number] [place] [address] [id number] COOPER TORRES Self - patient is the insured Medical (General) History Medical History History ICD Code Polycystic ovarian syndrome E28.2 Surgical History Surgery Date(Month/Year)
--- OUTSIDE RECORDS SUMMARY | 2024-05-10 17:07 | XMS_ITS | Encounter Summary ---
Author Organization [facility] Address [address] [place], [place] [address] Phone Care Team Providers Care Administrative Appeals Tribunal Member Name Role Phone Provider, Spencer CANALES Primary Care Provider [phone] Reason for Visit * Reason Comments Med Refill Encounter Details Date Type Department Care Team (Late st Contact Info) Description 12/20/2016 Refill [facility] [address] [place], [place] [phone] Kelly Clark MD [address] [place], [place] [phone] Acne vulgaris (Primary Dx) Social History Tobacco Use Types Packs/Day Years Used Date Smoking Tobacco: Never Comments:Never smoker Comments Unknown Sex and Gender Information Value Date Recorded Sex Assigned at Female 03/16/2019 10:32 AM EST Legal Sex Female 5:14 PM EDT Gender Identity Female 03/16/2019 10:32 AM EST Sexual Orientation Straight 03/16/2019 10 :32 AM EST documented as of this encounter Miscellaneous Notes * Telephone Encounter - Mesha Fairchild LPN - 12/23/2016 8:39 AM EST Last PE 01/19/16, has pending PE appt on 01/30/17/ANNABELLE documented in this encounter Plan of Treatment Not on file documented as of this encounter Visit Diagnoses Diagnosis Acne vulgaris- Primary Other acne documented in this encounter Care Teams Administrative Appeals Tribunal Member Relationship Specialty Start Date End Date Provider, MD Spencer [address] [place] [address] PCP - General Pediatrics 07/11/21 10/07/22 documented as of this encounter
--- OUTSIDE RECORDS SUMMARY | 2024-05-10 17:07 | XMS_ITS | Encounter Summary ---
Author Organization [facility] Address [address] [place], [place] [id number] Phone Care Team Providers Care Watch Train Inspector Name Role Phone Provider, Spencer CANALES Primary Care Provider [phone] Encounter Details Date Type Department Care Team (Late st Contact Info) Description 07/29/[address] [facility] [place] Family Medicine [address] [place] [address] Family Medicine, Physician [address] [place] [id number] Social History Tobacco Use Types Packs/Day Years [...] on filedocumented in this encounter Care Teams Watch Train Inspector Relationship Specialty Start Date End Date Provider, MD Spencer [address] [place] [phone] PCP - General Pediatrics 07/11/21 10/07/22 documented as of this encounter
--- OUTSIDE RECORDS SUMMARY | 2024-05-10 17:07 | XMS_ITS | Encounter Summary ---
Author Organization [facility] Address [address] [place] [address] Phone Care Team Providers Care Android Ui Developer Name Role Phone Provider, Spencer CANALES Primary Care Provider [phone] Encounter Details Date Type Department Care Team (Late st Contact Info) Description 05/06/2016 Documentation [facility] [place] [address] [place] [address] Family Medicine, Physician [facility] [address] Social History Tobacco Use Types Packs/Day Years [...] on filedocumented in this encounter Care Teams Android Ui Developer Relationship Specialty Start Date End Date Provider, MD Spencer [address] [place] [phone] PCP - General Pediatrics 07/11/21 10/07/22 documented as of this encounter
--- OUTSIDE RECORDS SUMMARY | 2024-05-10 17:07 | XMS_ITS | Encounter Summary ---
Author Organization [facility] Address [address] [place] [address] Phone Care Team Providers Care Advertising Production Manager Name Role Phone Provider, Spencer CANALES Primary Care Provider [phone] Encounter Details Date Type Department Care Team (Late st Contact Info) Description 09/26/2016 Conversion Encounter [facility] [address] [place] [address] Social History Tobacco Use Types Packs/Day Years [...] on filedocumented in this encounter Care Teams Advertising Production Manager Relationship Specialty Start Date End Date Provider, MD Spencer [address] [place] [phone] PCP - General Pediatrics 07/11/21 10/07/22 documented as of this encounter
--- OUTSIDE RECORDS SUMMARY | 2024-05-10 17:07 | XMS_ITS | Encounter Summary ---
Author Organization [facility] Address [address] [place], [place] [id number] Phone Care Team Providers Care Senior Ui Designer Name Role Phone Provider, Spencer CANALES Primary Care Provider [phone] Encounter Details Date Type Department Care Team (Late st Contact Info) Description 02/14/2014 Documentation [facility] [place] Family Medicine [address] [place] [address] Family Medicine, Physician [address] [place] [phone] Social History Tobacco Use Types Packs/Day Years [...] on filedocumented in this encounter Care Teams Senior Ui Designer Relationship Specialty Start Date End Date Provider, MD Spencer [address] [place] [phone] PCP - General Pediatrics 07/11/21 10/07/22 documented as of this encounter
--- OUTSIDE RECORDS SUMMARY | 2024-05-10 17:07 | XMS_ITS | Encounter Summary ---
Author Organization [facility] Address [address] [place] [address] Phone Care Team Providers Care Nuclear Security Officer Name Role Phone Provider, Spencer CANALES Primary Care Provider [phone] Encounter Details Date Type Department Care Team (Late st Contact Info) Description 05/06/2016 Documentation [facility] [place] Family Medicine [address] [place] [address] Family Medicine, Physician [facility] [place] [address] Social History Tobacco Use Types Packs/Day Years [...] on filedocumented in this encounter Care Teams Nuclear Security Officer Relationship Specialty Start Date End Date Provider, MD Spencer [address] [place] [phone] PCP - General Pediatrics 07/11/21 10/07/22 documented as of this encounter
--- OUTSIDE RECORDS SUMMARY | 2024-05-10 17:07 | XMS_ITS | Clinical Summary ---
Author Organization [facility] Address [address] [place] [id number] Phone Care Team Providers Care Shipping Packer Name Role Phone Unavailable Primary Care Provider Unavailabl e Allergies Active Allergy Reactions Criticality Noted Date Comments Sulfamethoxazole-Trimethoprim 2016 Sulfa Antibiotics Hives 08/24/2017 Medications albuterol HFA 108 (90 Base) MCG/ACT inhalerIndicati ons:Cough Inhale 2 puffs every 4 (four) hours as needed for wheezing or shortness of breath. 1 Units 9 Active Additional Information Patient not taking.Reported on 09/22/2018 Active Problems Problem Noted Date Diagnosed Date Menstrual irregularity 01/30/2017 Assessment & Plan (09/22/2018 11:03 AM EDT): Has been doing well on OCP. Now with regular menses. mild pain, not too heavy. Normal BP. No other concerns Assessment & Plan (03/05/2018 3:10 PM EST): Continues to have irregular menses and wants to start OCP. control hormone pills discussed and ordered There is no family history of blood clots. Side effects reviewed - mild nausea, breast tenderness, spotting. If any of these or other symptoms are severe, please call our office. If you have severe pain in you head, chest, abdomen or calf, go to the ER. This is signs and symptoms of a blood clot which is rare but can happen in people taking control pills. Start control pills on the Friday after your next period starts. Take one pill every day about the same time. If you miss a pill take it as soon as you remember. Take no more than 2 pills on the same day. The Pill is not effective in preventing during the first month you are on it. If sexually active, always use a condom to prevent sexually transmitted infection. Schedule a follow-up appointment in 3 months. Assessment & Plan (01/30/2017 4:15 PM EST): Schedule a follow up appt to discuss options and how to take etc. Dizziness 01/30/2017 Overview (03/16/2019): With 2 episodes of syncope and seizure. Pt has had an EEG that was normal. Family hx of seizure Has seen medical auditor and dx with benign fainting Assessment & Plan (03/16/2019 11:49 AM EST): Occasionally. Cardiology seen and reassurance given Assessment & Plan (09/22/2018 12:31 PM EDT): Continues to have occasional episodes of dizziness and feeling faint. Unclear etiology. Refer to cardiology Assessment & Plan (01/30/2017 4:15 PM EST): Intermittent dizziness and history of fainting x 1 at home in the evening a few months ago. I have ordered an EKG and want you to keep a calendar of 5 or so episodes of when you feel dizzy. What just happened, what have you been eating. How long does it last etc.. BMI (body mass index), pediatric, 95-99% for age 1201/30/2017 Assessment & Plan (03/16/2019 11:48 AM EST): Continues to work on getting more exercise and eating more high fiber foods. Assessment & Plan (03/05/2018 3:55 PM EST): Increased fiber diet with lots of fruits and vegetable and well as increase in water and activity discussed. Assessment & Plan (01/30/2017 4:17 PM EST): Keep up the good work with walking your dog regularly! Cat allergies 01/19/2016 Overview (03/05/2018): Has 3 cats and 3 dogs at home. Pt is often itchy and sneezing. Allertec helps. Assessment & Plan (03/16/2019 11:48 AM EST): allertec prn Episodic tension-type headache, not intractable 12/23/2014 Overview (03/16/2019): Gets bad GALVEZ a few times a month Sleeps help Sensitive to light Assessment & Plan (03/16/2019 10:39 AM EST): Managing GALVEZ well. Assessment & Plan (03/05/2018 3:11 PM EST): Has been better recently re headaches. Assessment & Plan (01/30/2017 4:16 PM EST): A few x a week. You are sensitive to sounds and some lights. Overall these are under good control. Tylenol helps. Resolved Problems Problem Noted Date Diagnosed Date Resolved Date Mild intermittent asthma without complication 03/05/19 19 03/16/2019 Overview (03/05/2018): Only started on albuterol after recent prolonged cough. Likely not asthma. Will follow. Assessment & Plan (09/22/2018 11:10 AM EDT): Has not used albuterol since prolonged cough. Hydradenitis 07/31/2017 03/05/2018 Overview (07/31/2017): Has seen Sandra Mccarthy 08/2016. On minocin since. Needs follow up with Derm. Assessment & Plan (03/05/2018 3:14 PM EST): No recurrence. Assessment & Plan (08/01/2017 1:33 PM EDT): Recommend follow up with Sandra Mccarthy. Will refill minocin for 1 month. Hearing difficulty, bilateral 01/30/2017 09/22/2018 Overview (09/22/2018): I have put in a referral for a formal hearing test. I do wonder if you have intermittent eustacian tube dysfuction 2nd to allergies which can cause dizziness, hearing probs, etc. Had normal hearing testing at [place] [address] Dry eyes 01/19/2016 09/22/2018 Overview (03/05/2018): Uses eye drops as needed. Has seen ophtho. Assessment & Plan (03/05/2018 3:03 PM EST): Stable. occas use of drops for dry eyes. Assessment & Plan (01/30/2017 4:15 PM EST): Continue drops as needed. Immunizations Immunization Administration Dates Next Due DTaP 5 06/06/2006, 4,05/07/2002,01/27,2001 H1N1 01/11/2009 HPV Vaccine 9 Valent 12/23/2014 HPV, Quadrivalent 10/22/2013 Hep A, ped/adol 12/23/2014,10/22/2013 Hep B, ped/adol 03/05/2018, 3,05/07/2002,09/26 Hib (PRP-T) 02/09/2003, 3,01/27/2002,12/11 IPV 06/06/2006, 3,01/27/2002,12/11 Influenza Split 11/30/2011,10/27/2009 Influenza, injectable, quadrivalent 11/13/2016,1 02/22/2014 Influenza, injectable, quadr ivalent, preservative free 03/16/2019,02/23/2018,10/24/2015,10/22 Influenza, injectable, trivalent 10/28/2008 Influenza, intranasal, trivalent 03/08/2011 MMR 02/09/2003 MMRV 06/06/2006 Meningococcal B Trumenba 09/17/2019,03/16/2019 Meningococcal Conj (Menactra) MCV4P 03/05/2018,0 09/08/2013 Pneumococcal Conjugate 02/09/2003,2002,01/27/2002,12/11 Tdap 09/08/2013 Varicella 02/09/2003 Family History Medical History Relation Name Comments Heart attack Father Derick Stroke Father Derick Arthritis Mother Dominga Hypertension Mother Dominga Irritable bowel syndrome Mother Dominga Mental illness Sister 1 Margarita Relation Name Status Comments Brother Semaj Alive Father Derick Alive Mother Dominga Alive Other Family history of cancer, skin, No family history of Developmental dislocation of hip, Family history of Asthma, Family history of Hyperlipidemia, No family history of *Thrombophilia, Family history of *CVA/Stroke, Family history of Obesity, No family history of *Sudden /NH under 55, Family history of Lymphoma, Family history of Hypertension, No family history of Seizure disorder, Family history of *Heart Disease Sister 1 Margarita Alive Sister 2 Poonam Alive Social History Tobacco Use Types Packs/Day Years Used Date Smoking Tobacco: Never Smokeless Tobacco: Never Tobacco Cessation:Counseling Given: Yes Comments:Never smoker Alcohol Use Standard Drinks/Week Comments Never 0 (1 standard drink = 0.6 oz pur e alcohol) Hunger/Food Answer Date Recorded In the last 12 months, did y ou or your family ever eat less than you felt you should because there wasn't enough money for food? No 03/16/2019 Stable Housing Answer Date Recorded Are you worried that in the next 2 months you may not have stable housing? No 03/16/2019 Transportation Concerns Answer Date Rec orded In the last 12 months, have you or your family ever had to go without healthcare because you didn't have a way to get there? No 03/16/2019 Hazards in Home Answer Date Recorded Think about the place you li ve. Do you have problems with any of the following? Pests (mice or roaches), mold, no/not working smoke detectors, water leaks, no window guards. No 2019 Financing Utilities Answer Date Recorde d In the last 12 months, has t he electric, gas, oil, or water company threatened to shut off your services in your home? No 03/16/2019 Safety at Home Answer Date Recorded Are you or your family worried about feeling saf e in your home? No 03/16/2019 Outside Support Answer Date Recorded Do you feel that you need mo re support from other people or programs to help you care for yourself or your family? No 03/16/2019 Understanding Health Concerns Answer Da te Recorded Do you need help understandi ng your or your child's healthcare needs (diagnosis, medications, plan, etc.)? No 03/16/2019 Financing Health Concerns Answer Date R ecorded In the last 12 months, was t here a time when your child needed to see a doctor or get medications or supplies but could not because of cost? No 03/16/2019 Missing School or Work Answer Date Brice rded Did you or your child miss s chool or work because of a health problem that could have been avoided? No 03/16/2019 Comments No Sex and Gender Information Value Date Recorded Sex Assigned at Female 03/16/2019 10:32 AM EST Legal Sex Female 5:14 PM EDT Gender Identity Female 03/16/2019 10:32 AM EST Sexual Orientation Straight 03/16/2019 10 :32 AM EST Last Filed Vital Signs Vital Sign Reading Time Taken Comments Blood Pressure 111/66 03/16/2019 10:05 AM EST Pulse 68 03/16/2019 10:05 AM EST Temperature 36.9 ??C (98.4 ??F) 03/16/2019 10:[address] Respiratory Rate - - Oxygen Saturation 97% 05/03/2009 12:00 AM EDT Inhaled Oxygen Concentration - - Weight 101 kg (222 lb 6.4 oz) 03/16/2019 10:05 A M EST Height 166.4 cm (5' 5.5 ) 03/16/2019 10:05 AM ES T Body Mass Index 36.45 03/16/2019 10:05 AM EST Plan of Treatment Health Maintenance Due Date Last Done Comments DTaP,Tdap,and Td Vaccines (7 - Td or Tdap) 09/09/2023 09/08/2013, 06/06/2006, 08/01/2003, Additional history exists Influenza Vaccines (#1) 2023 03/16/19 20, 02/23/2018, 11/13/2016, Additional history exists COVID-19 Vaccine (2023- 5 season) 2023 03/13/2021, 07/05/2020 HIB Vaccines Completed 02/09/2003, 04/11, 01/27/2002, Additional history exists Pneumococcal Vaccine Completed 02/09/2003, 05/07/2002, 01/27/2002, Additional history exists IPV Vaccines Completed 06/06/2006, 06/11, 01/27/2002, Additional history exists MMR Vaccines Completed 06/06/2006, 02/09/2003 Varicella Vaccines Completed 06/06/2006, 02/09/2003 HPV Vaccines Completed 12/23/2014, 10/22/2013 Hepatitis A Vaccines Completed 12/23/2014, 10/23/19 14 Hepatitis B Vaccines Completed 03/05/2018, 06/29/2002, 05/07/2002, Additional history exists Meningococcal Vaccine Completed 03/05/2018, 014 Men B Vaccine Completed 09/17/2019, 03/16/2019 Procedures * Due to [place] [employer] law, this organization might not be sharing sensitive test results. Procedure Name Priority Date/Time Associated Diagnosis Comments CHLAMYDIA AND GONORRHEA, AMPLIFIED Routine 03/16/2019 10:17 AM EST Screening examination for bacterial and spirochetal disease from Last 3 Months or Most Recently Relevant to Health Maintenance Results * Due to [place] [employer] law, this organization might not be sharing sensitive test results. * Chlamydia and Gonorrhoea, Amplified (03/16/2019 10:17 AM EST) Chlamydia Trachomatis, DNA Probe NEGATIVE (NEG) [facility] Comment: No Chlamydia Trachomatis RNA detected in this patient's sample ? (REFERENCE RANGE/NORMAL VALUE: NOT DETECTED) ? Note: This test uses eyedotter- mediated amplification method to detect rRNA from C. Trachomatis URINE GC AMP PROBE NEGATIVE (NEG) [facility] Comment: No Neisseria Gonorrhoeae RNA detected in this patient's sample ? (REFERENCE RANGE/NORMAL VALUE: NOT DETECTED) ? NOTE: This test uses eyedotter-mediated amplification method to detect rRNA from N.Gonorrhoeae. A negative result does not preclude infection. In the case of a negative urine result, testing of an endocervical(female) or urethral (male) specimen is recommended if there is high clinical suspicion of infection. Due to very high sensitivity of Nucleic Acid Amplification Test, false positive results may occur. Therefore, specimen handling is extremely important. In patients in whom the disease is unlikely, additional sample for testing should be considered after an initial positive result. The performance characteristics of this test have not been evaluated in children. The Aptima Combo2 assay is not intended for the evaluation of suspected sexual abuse or for other medico-legal indications. The ordering provider should assess if the patient had consensual sex without risk of sexual abuse. Consult the [facility] if needed. Contact phone number . Therapeutic failure or success cannot be determined with the Aptima Combo2 assay since nucleic acid may persist following appropriate antimicrobial therapy. The Centers for Disease Control and Prevention (CDC) recommends confirmatory retesting using culture or a different nucleic acid amplification test when positive results occur, if indicated. Testing performed or reported by [facility], a Service of [facility], [address] [place] [address] Ren Whitmore MD, Chamber Magistrate Urine 03/16/2019 10:1 7 AM EST 03/16/2019 6:05 PM EST us Kelly Clark MD LAB MICROBIOLOGY - GENERAL O RDERABLES Final Result [facility] from Last 3 Months or Most Recently Relevant to Health Maintenance Insurance [facility]
--- OUTSIDE RECORDS SUMMARY | 2024-05-10 17:07 | XMS_ITS | Encounter Summary ---
Author Organization [facility] Address [address] [place], [place] [address] Phone Care Team Providers Care Painter And Grader Cork Name Role Phone Provider, Spencer CANALES Primary Care Provider [phone] Encounter Details Date Type Department Care Team (Late st Contact Info) Description 10/30/2009 Documentation [facility] [place] Family Medicine [address] [place] [address] Family Medicine, Physician [address] [place], [place] [id number] Social History Tobacco Use Types Packs/Day Years [...] on filedocumented in this encounter Care Teams Painter And Grader Cork Relationship Specialty Start Date End Date Provider, MD Spencer [address] [place] [phone] PCP - General Pediatrics 07/11/21 10/07/22 documented as of this encounter
== END 2024-05-10 15:56 | disposition home or self-care (01) ==
LOC: HO.HOS 15:10
PROVIDERS: PCP Pediatrics; Visit Provider Physician Assistant
DX: S83.511D Sprain of anterior cruciate ligament of right knee, subsequent encounter (principal); M22.41 Chondromalacia patellae, right knee
CPT/HCPCS: 99213

== ENCOUNTER → 2024-05-10 15:09 | Outpatient (BNVA) | payer OTHER, SELFPAY | PROVIDERS: PCP Pediatrics; Visit Provider Physician Assistant | DX: M22.41 Chondromalacia patellae, right knee (principal); Z98.890 Other specified postprocedural states | CPT/HCPCS: 99212 ==